=== PATIENT | female | born 1945 | race Asian ===

== ENCOUNTER 2017-10-05 06:08 | Inpatient (IN) | payer MEDICARE, OTHER ==
[~2017-10-05 06:08] MED LIST: CEFAZOLIN 2 GM/50 ML (PMX) 50 ML IVPB
[2017-10-05] MEDS ORDERED: GLYCOPYRROLATE 0.4 MG INJ (07:40)
[2017-10-05] MEDS ORDERED: PROPOFOL 20 ML (07:40)
[2017-10-05] MEDS ORDERED: ROCURONIUM 50 MG INJ (07:40)
[2017-10-05] MEDS ORDERED: ROPIVACAINE 0.2% 20 ML VIAL (07:40)
[2017-10-05] MEDS ORDERED: CEFAZOLIN 1 GM INJ (07:40)
[2017-10-05] MEDS ORDERED: LIDOCAINE 2% (SDV) 5 ML INJ (07:40)
[2017-10-05] MEDS ORDERED: NEOSTIGMINE 3 MG/3 ML SYRINGE (07:40)
[2017-10-05] MEDS ORDERED: SUCCINYLCHOLINE CHLORIDE 100 MG/5 ML SYG IV (07:40)
[2017-10-05] MEDS ORDERED: EPHEDrine SULFATE 50 MG/5 ML SYG (08:21)
[2017-10-05] MEDS ORDERED: LIDOCAINE 1%/EPI 30 ML INJ ×2 (08:31→09:28)
[2017-10-05] MEDS: LIDOCAINE 1%/EPI 30 ML INJ INJ (08:35)
[2017-10-05] MEDS ORDERED: ONDANSETRON 4 MG INJ (09:15)
[2017-10-05] MEDS ORDERED: METOCLOPRAMIDE 10 MG INJ (09:15)
[2017-10-05] MEDS ORDERED: FENTAnyl 2MCG/ML-ROPIV 0.2% 100 ML (09:56)
[2017-10-05] MEDS ORDERED: NALOXONE (0.4 MG/ML) INJ IV (10:30)
[2017-10-05] MEDS ORDERED: HYDROmorphONE 0.5 MG/0.5 ML SYG IV ×2 (10:30)
[2017-10-05] MEDS: CLINDAMYCIN 2% 40 GM VAG CR VAG (10:30)
[2017-10-05] MEDS ORDERED: ONDANSETRON 4 MG INJ IV (11:00)
[2017-10-05] MEDS: FENTAnyl 2MCG/ML-ROPIV 0.2% 100 ML BAG EPI ×2 (11:17→23:50)
[2017-10-05] MEDS: ONDANSETRON 4 MG INJ IV (11:37)
[2017-10-05] MEDS: IBUPROFEN 600 MG TAB PO ×4 (12:00→23:09)
[2017-10-05] MEDS: LACTATED RINGER'S 1,000 ML IV* (13:09)
[2017-10-05] MEDS: DIPHENHYDRAMINE 50 MG INJ IV (23:08)
[2017-10-06 05:00] LABS: ADD MAN DIFF? NO
[2017-10-06] MEDS: IBUPROFEN 600 MG TAB PO ×3 (05:12→18:20)
[2017-10-06 05:47] LABS: ALANINE AMINOTRANSFERASE 19 IU/L (13-69); ALBUMIN 2.9 g/dl (3.3-4.9); ALBUMIN/GLOBULIN RATIO 1.11; ALKALINE PHOSPHATASE 32 IU/L (42-121); ANION GAP 11 (8-16); ASPARTATE AMINO TRANSFERASE 21 IU/L (15-46); BILIRUBIN,INDIRECT 0.4 mg/dl (0-1.1); BILIRUBIN,TOTAL 0.4 mg/dl (0.2-1.3); BLOOD UREA NITROGEN 12 mg/dl (7-20); CALCIUM 8.3 mg/dl (8.4-10.2); CARBON DIOXIDE 24 mmol/L (21-31); CHLORIDE 111 mmol/L (97-110); CREATININE 0.69 mg/dl (0.44-1.00); GLUCOSE 100 mg/dl (70-220); POTASSIUM 3.8 mmol/L (3.5-5.1); SODIUM 142 mmol/L (135-144); TOTAL PROTEIN 5.5 g/dl (6.1-8.1)
[2017-10-06 06:58] LABS: BASOPHILS % 0.2 % (0.0-2.0); EOSINOPHILS # 0.1 10^3/ul (0.0-0.5); EOSINOPHILS % 0.6 % (0.0-7.0); HEMATOCRIT 33.4 % (37.0-47.0); HEMOGLOBIN 11.2 g/dl (12.0-16.0); LYMPHOCYTES % 12.4 % (15.0-51.0); MEAN CORPUSCULAR HEMOGLOBIN 31.2 pg (29.0-33.0); MEAN CORPUSCULAR HGB CONC 33.5 g/dl (32.0-37.0); MEAN PLATELET VOLUME 9.3 fl (7.4-10.4); MONOCYTE # 0.5 10^3/ul (0.3-0.9); MONOCYTES % 6.7 % (0.0-11.0); NEUTROPHIL # 6.4 10^3/ul (1.6-7.5); NEUTROPHILS % 79.7 % (39.0-77.0); PLATELET COUNT 136 10^3/UL (140-415); RED BLOOD COUNT 3.59 10^6/ul (4.20-5.40); RED CELL DISTRIBUTION WIDTH 12.5 % (11.5-14.5)
[2017-10-06] MEDS: DIPHENHYDRAMINE 50 MG INJ IV ×2 (07:39→22:12)
[2017-10-06] MEDS: ACETAMINOPHEN 325 MG TAB PO (10:25)
[2017-10-06] MEDS: OXYCODONE/ACETAMINOPHEN (5/325) TAB PO ×2 (17:28→21:28)
[2017-10-06] MEDS: FAMOTIDINE 20 MG INJ IV (21:24)
[2017-10-06] MEDS: METOPROLOL (XL) 25 MG TAB PO (21:28)
[2017-10-06] MEDS: ATORVASTATIN 10 MG TAB PO (21:29)
[2017-10-06] MEDS: LOSARTAN 25 MG TAB PO (21:29)
[2017-10-07] MEDS: IBUPROFEN 600 MG TAB PO ×4 (00:02→18:10)
[2017-10-07] MEDS: ATORVASTATIN 10 MG TAB PO (08:38)
[2017-10-07] MEDS: LOSARTAN 25 MG TAB PO (08:39)
[2017-10-07] MEDS: METOPROLOL (XL) 25 MG TAB PO (08:39)
[2017-10-07] MEDS ORDERED: MAGNESIUM HYDROXIDE 30ML CUP PO (16:00)
[2017-10-07] MEDS: BISACODYL (EC) 5 MG TAB PO (16:22)
== END 2017-10-07 18:40 | disposition home or self-care (01) | DRG 743 ==
LOC: REC 06:08 → MS1 12:11
PROC: 0UT97ZZ Resection of Uterus, Via Natural or Artificial Opening (ICD-10-PCS; principal; 2017-10-05 07:25)
PROC: 0JQC3ZZ Repair Pelvic Region Subcutaneous Tissue and Fascia, Percutaneous Approach (ICD-10-PCS; 2017-10-05 07:25)
PROC: 0JQC3ZZ Repair Pelvic Region Subcutaneous Tissue and Fascia, Percutaneous Approach (ICD-10-PCS; 2017-10-05 07:25)
DX: N81.3 Complete uterovaginal prolapse (principal); N81.10 Cystocele, unspecified; I10 Essential (primary) hypertension
CPT/HCPCS: 80053; 85025; 88305